=== PATIENT | female | born 1960 | race African-American/Black ===

== ENCOUNTER → 2018-07-24 | Day surgery (SDC) | payer BC ==
[2018-07-23 12:29] VITALS: BMI 24.2
[~2018-07-24] MED LIST: CLINDAMYCIN PHOSPHATE 600 MG/4 ML VIAL IVPB ONE; CLINDAMYCIN PHOSPHATE 600 MG/4 ML VIAL ONE; DEXAMETHASONE SOD PHOSPHATE 4 MG/1 ML VIAL ONE; MIDAZOLAM HCL 2 MG/2 ML SINGLE DOSE VIAL ONE
--- NOTE | 2018-07-24 10:44 | OP ---
Operative Note - Note: Operative Date: 07/24/18 Pre-Operative Diagnosis: Left renal Calculus Staghorn Operation: ESWL Left Findings: Large left renal calculus in the renal pelvis extending into the upper calyx. Post-Operative Diagnosis: Same as Pre-op Surgeon: Jose Antonio Hunt Anesthesia: General Operative Report Dictated: Yes
--- NOTE | 2018-07-24 11:35 | OP ---
DATE OF OPERATION: 07/24/2018 SURGEON: Jose Antonio Hunt MD ANESTHESIA: General. PREOPERATIVE DIAGNOSIS: Staghorn calculus, left kidney. POSTOPERATIVE DIAGNOSIS: Staghorn calculus, left kidney. PROCEDURE: Extracorporeal shock wave lithotripsy, left. FINDING: Large staghorn calculus noted in the left kidney, occupying the pelvis, extending onto upper and lower calyx. DESCRIPTION OF PROCEDURE: Patient in supine position with slight left lateral position was prepped and draped in the usual manner. ESWL performed. A total of 2500 shocks given. The position of the stone confirmed with sonogram. Patient tolerated the procedure well and left the operating room in a satisfactory condition. Melodie [id number]
[2018-07-24 11:38] VITALS: BP 95/60; PULSE 55; TEMP 97.5
== END | disposition home or self-care (01) ==
LOC: JASU-SURG 08:06
PROVIDERS: ATTEND Urology
PROC: 0TF4XZZ Fragmentation in Left Kidney Pelvis, External Approach (ICD-10-PCS; principal; 2018-07-24 10:00)
DX: N20.0 Calculus of kidney (principal)

== ENCOUNTER 2023-11-17 04:16 | Day surgery (SDC) | payer OTHER ==
[2023-11-09 13:15] VITALS: BMI 24.4
[2023-11-17] MEDS ORDERED: BUPIVACAINE HCL/PF 0.5% (5MG/ML) 10 ML VIAL ONE (07:22)
[2023-11-17] MEDS ORDERED: TRIAMCINOLONE ACET 40MG/1ML VIAL ONE (07:22)
[2023-11-17] MEDS ORDERED: BUPIVACAINE HCL/PF 0.25% (2.5MG/ML) 10 ML VIAL ONE (07:22)
[2023-11-17] MEDS ORDERED: LIDOCAINE HCL/PF 1% SDV 5ML VIAL ONE (07:22)
[2023-11-17] MEDS ORDERED: ACETAMINOPHEN 500 MG TABLET (FP) PO PRN (07:48)
[2023-11-17] MEDS: TRIAMCINOLONE ACETONIDE 40 MG/ML 10 ML VIAL IJ ONE (12:16)
[2023-11-17] MEDS: BUPIVACAINE HCL/PF 0.25% (2.5MG/ML) 10 ML VIAL IJ ONE (12:19)
[2023-11-17] MEDS: IOHEXOL 180 MG/1 ML ML IJ ONE (12:19)
[2023-11-17] MEDS: LIDOCAINE 1% P/F 10 MG/ML VIAL INF ONE (12:22)
[2023-11-17 12:42] VITALS: BP 114/60; TEMP 97.8
[2023-11-17 12:43] VITALS: PULSE 18; RESP 69
== END 2023-11-17 13:10 | disposition home or self-care (01) ==
LOC: JASU-SURG 04:16
PROVIDERS: ATTEND Pain Medicine Pain Medicine
PROC: 3E0U3GC Introduction of Other Therapeutic Substance into Joints, Percutaneous Approach (ICD-10-PCS; principal; 2023-11-17 12:30)
DX: M16.12 Unilateral primary osteoarthritis, left hip (principal)
CPT/HCPCS: 76000-TC-FY